=== PATIENT | male | born 1990 | race African-American/Black ===

== ENCOUNTER 2018-05-27 21:53 | Emergency (ER) | payer MEDICAID, OTHER ==
[~2018-05-27] VITALS: Ht 182.9 cm; Wt 83.9 kg
[2018-05-27] MEDS ORDERED: LORazepam 2MG/ML-1ML VIAL IM ONE (23:00)
[2018-05-28] MEDS ORDERED: diphenhdrAMINE HCL 50 MG/1 ML VL ONE (00:02)
[2018-05-28] MEDS ORDERED: HALOPERIDOL LACTATE 5 MG/ML INJ VIAL ONE (00:02)
[2018-05-28] MEDS ORDERED: HALOPERIDOL LACTATE 5 MG/ML INJ VIAL IM ONE (00:15)
[2018-05-28] MEDS ORDERED: diphenhdrAMINE HCL 50 MG/1 ML VL IM ONE (00:15)
[2018-05-28] MEDS ORDERED: SODIUM CHLORIDE 0.9% 2,000 ML IV ONE (01:15)
[2018-05-28 02:01] LABS: Basophils # (auto) 0.1 uL; Basophils % (auto) 0.4 % (0.0-2.0); Eosinophils # (auto) 0 uL; Eosinophils % (auto) 0.2 % (0.0-7.0); Hematocrit 45.5 % (41.0-53.0); Lymphocytes # (auto) 1.9 uL; Lymphocytes % (auto) 12.8 % (10.0-50.0); Mean Corpuscular Hemoglobin 28.5 pg (28.0-32.0); Mean Corpuscular Volume 86.4 fL (80.0-100.0); Monocytes # (auto) 1.1 uL; Neutrophils # (auto) 12.1 uL; Neutrophils % (auto) 79.6 % (37.0-80.0); Nucleated Red Blood Cells % 0.2 %; Platelet Count (auto) 255 10^3/uL (140-450); Red Blood Cells 5.27 10^6/uL (4.5-5.90); Red Cell Distribution Width 13.9 % (11.8-14.3); White Blood Cell 15.2 10^3/uL (4.4-10.8)
[2018-05-28 02:19] LABS: Alanine Aminotransferase 22 U/L (16-61); Albumin 4.8 g/dL (3.4-5.0); Anion Gap 13 (5-15); Aspartate Aminotransferase 26 U/L (15-37); BUN/Creatinine Ratio 16.8; Blood Alcohol < 3.0 mg/dL (0-5); Blood Urea Nitrogen 21 mg/dL (7-18); Calcium 9.2 mg/dL (8.5-10.1); Carbon Dioxide 22 mmol/L (21-32); Chloride 102 mmol/L (98-107); GFR African American 91 mL/min; GFR Non-African American 75 mL/min; Glucose 109 mg/dL (74-106); Magnesium 2.2 mg/dL (1.6-2.6); Potassium 3.9 mmol/L (3.5-5.1); Sodium 137 mmol/L (136-145)
[2018-05-28 02:22] LABS: Alkaline Phosphatase 78 U/L (45-117); Total Protein 8.6 g/dL (6.4-8.2)
[2018-05-28 02:48] LABS: Salicylate < 1.7 mg/dL (2.8-20.0)
[2018-05-28 02:53] LABS: Acetaminophen < 2.0 ug/mL (10-30)
[2018-05-28 03:47] VITALS: BP 121/60
== END 2018-05-28 04:04 | disposition home or self-care (01) ==
LOC: ER 21:58
DX: F15.10 Other stimulant abuse, uncomplicated (principal); F17.210 Nicotine dependence, cigarettes, uncomplicated
CPT/HCPCS: 36415; 80053; 80320; 80329; 83036; 83735; 85025; 96372; 99283; J1200; J1630; J2060; A4565

== ENCOUNTER 2018-11-07 02:16 | Emergency (ER) | payer SELFPAY ==
[~2018-11-07] VITALS: Ht 182.9 cm; Wt 77.1 kg
[2018-11-07 07:17] VITALS: BP 132/70
== END 2018-11-07 07:23 | disposition home or self-care (01) ==
LOC: EDBD 02:16 → ER 02:18
DX: J20.9 Acute bronchitis, unspecified (principal); F17.210 Nicotine dependence, cigarettes, uncomplicated; F15.10 Other stimulant abuse, uncomplicated

== ENCOUNTER 2020-07-09 23:19 | Emergency (ER) | payer MEDICAID ==
[~2020-07-09] VITALS: Ht 185.4 cm; Wt 79.4 kg
[2020-07-09 23:32] VITALS: BP 137/87
[2020-07-10 00:21] LABS: Albumin 4.8 g/dL (3.4-5.0); BUN/Creatinine Ratio 15.7; Calcium 9.5 mg/dL (8.5-10.1); Potassium 3.8 mmol/L (3.5-5.1)
[2020-07-10 00:24] LABS: Bilirubin, Total 0.4 mg/dL (0.2-1.0); Total Protein 8.6 g/dL (6.4-8.2)
[2020-07-10 01:18] LABS: Basophils # (auto) 0 10 ^3/uL (0-0.2); Basophils % (auto) 0.4 % (0.0-2.0); Eosinophils # (auto) 0 10 ^3/uL (0-0.8); Eosinophils % (auto) 0.2 % (0.0-7.0); Hematocrit 40.9 % (41.0-53.0); Hemoglobin 13.8 g/dL (13.5-17.5); Lymphocytes # (auto) 2.1 10 ^3/uL (0.4-5.4); Lymphocytes % (auto) 17.2 % (10.0-50.0); Mean Corpuscular Hemoglobin 29.2 pg (28.0-32.0); Mean Corpuscular Hgb Conc. 33.8 g/dL (32.0-36.0); Mean Corpuscular Volume 86.3 fL (80.0-100.0); Monocytes # (auto) 0.7 10 ^3/uL (0-1.3); Monocytes % (auto) 5.9 % (0.0-12.0); Neutrophils # (auto) 9.3 10 ^3/uL (1.6-8.6); Neutrophils % (auto) 76.3 % (37.0-80.0); Nucleated Red Blood Cells % 0.1 %; Platelet Count (auto) 343 10^3/uL (140-450); Red Blood Cells 4.74 10^6/uL (4.5-5.90); Red Cell Distribution Width 13.1 % (11.8-14.3); White Blood Cell 12.3 10^3/uL (4.4-10.8)
== END 2020-07-10 | disposition left against medical advice (07) ==
LOC: ER 23:25
DX: R53.83 Other fatigue (principal); F17.210 Nicotine dependence, cigarettes, uncomplicated; F15.10 Other stimulant abuse, uncomplicated
CPT/HCPCS: 36415; 80053; 85025

== ENCOUNTER 2021-08-08 00:23 | Emergency (ER) | payer MEDICAID ==
[~2021-08-08] VITALS: Ht 182.9 cm; Wt 86.2 kg
[2021-08-08 00:26] VITALS: BP 132/74
[2021-08-08] MEDS ORDERED: CLIN300C8 PO (01:05)
== END 2021-08-08 01:19 | disposition home or self-care (01) ==
LOC: ER 00:23
DX: S90.822A Blister (nonthermal), left foot, initial encounter (principal); S90.821A Blister (nonthermal), right foot, initial encounter; F17.210 Nicotine dependence, cigarettes, uncomplicated; F12.10 Cannabis abuse, uncomplicated; X58.XXXA Exposure to other specified factors, initial encounter; Y93.89 Activity, other specified; Y92.89 Other specified places as the place of occurrence of the external cause; Y99.8 Other external cause status

== ENCOUNTER 2021-08-09 20:44 | Emergency (ER) | payer MEDICAID ==
[~2021-08-09] VITALS: Ht 182.9 cm; Wt 81.6 kg
[~2021-08-09 20:44] MED LIST: CLIN300C8 PO
[2021-08-09 20:47] VITALS: BP 137/82
== END 2021-08-09 22:04 | disposition home or self-care (01) ==
LOC: ER 20:46
DX: M79.671 Pain in right foot (principal); M79.672 Pain in left foot; F17.210 Nicotine dependence, cigarettes, uncomplicated; Z79.2 Long term (current) use of antibiotics

== ENCOUNTER 2021-08-20 04:01 | Emergency (ER) | payer MEDICAID ==
[~2021-08-20] VITALS: Ht 182.9 cm; Wt 74.8 kg
[2021-08-20] MEDS ORDERED: TRIA0.1O TOP (07:20)
[2021-08-20 07:23] VITALS: BP 134/87
== END 2021-08-20 07:38 | disposition home or self-care (01) ==
LOC: ER 04:01
DX: L25.9 Unspecified contact dermatitis, unspecified cause (principal); F17.210 Nicotine dependence, cigarettes, uncomplicated; Z59.00 Homelessness unspecified; Z79.2 Long term (current) use of antibiotics; Z79.899 Other long term (current) drug therapy

== ENCOUNTER 2021-08-20 20:27 | Emergency (ER) | payer MEDICAID ==
[~2021-08-20] VITALS: Ht 182.9 cm; Wt 79.4 kg
[2021-08-20 20:27] VITALS: BP 127/49
[~2021-08-20 20:27] MED LIST changes: +TRIA0.1O TOP
== END 2021-08-20 22:11 | disposition home or self-care (01) ==
LOC: ER 20:29
DX: S90.822A Blister (nonthermal), left foot, initial encounter (principal); S90.821A Blister (nonthermal), right foot, initial encounter; F17.210 Nicotine dependence, cigarettes, uncomplicated; Z59.00 Homelessness unspecified; Z79.2 Long term (current) use of antibiotics; Z79.899 Other long term (current) drug therapy; X58.XXXA Exposure to other specified factors, initial encounter; Y93.89 Activity, other specified; Y92.89 Other specified places as the place of occurrence of the external cause; Y99.8 Other external cause status